=== PATIENT | male | born 1985 | race Caucasian/White ===

== ENCOUNTER 2019-12-17 02:05 | Emergency (ER) | payer SELFPAY ==
[~2019-12-17] VITALS: Ht 180.3 cm; Wt 83.9 kg
[2019-12-17 02:10] VITALS: BP 128/65
--- NOTE | 2019-12-17 02:10 | NUR ---
ED Nurse Note: Pt [place] into ED from nightclub by [facility] [address] for c/o alcohol intoxication. Pt was laying in front of the nightclub and was unable to walk with steady gait and security called 911. Pt reports having multiple alcoholic drinks tonight, but is being uncooperative with further questioning. Pt is aaox4, no cardiac or respiratory distress noted. Pt denies any pain or complaints. Pt able to stand and sit on hospital bed. Will continue to monitor.
--- NOTE | 2019-12-17 02:31 | Emergency Room Report ---
History of Present Illness General Chief Complaint: Alcohol Intoxication Source: Patient Present Illness HPI Patient is a 34-year-old male presents after increased confusion. Patient was reportedly in a nightclub and was noted to have altered mental status. He had recently been drinking alcohol. He denies any current complaints. Patient was brought in by EMS after being called. Patient denies any current pain. Allergies: Coded Allergies: No Known Allergies (Unverified , 12/17/19) Patient History Past Medical History: see triage record Reviewed Nursing Documentation: PMH: Agreed; PSxH: Agreed Nursing Documentation-PMH Past Medical History: No Stated History Review of Systems All Other Systems: limited - Limited by mental status Physical Exam Vital Signs Date Time Temp Pulse Resp B/P (MAP) Pulse Ox O2 Delivery O2 Flow Rate FiO2 12/17/19 02:06 98.8 98 17 128/65 (86) 99 Room Air Sp02 EP Interpretation: reviewed, normal General Appearance: normal inspection, well appearing, no apparent distress, alert Head: atraumatic Eyes: bilateral eye PERRL ENT: normal ENT inspection, hearing grossly normal, normal voice Neck: normal inspection, full range of motion, supple, no bony tend Respiratory: normal inspection, lungs clear, normal breath sounds, no respiratory distress, no retraction, no wheezing Cardiovascular #1: regular rate, rhythm, no edema Gastrointestinal: normal inspection, normal bowel sounds, non tender, soft, no guarding, no hernia Genitourinary: no CVA tenderness Musculoskeletal: normal inspection, back normal, normal range of motion Neurologic: alert, motor strength/tone normal, last ironer III-XII nml as tested, responsive, speech normal, normal inspection, other - Slurred speech Psychiatric: normal inspection, judgement/insight normal, mood/affect normal Skin: no rash Medical Decision Making Diagnostic Impression: Primary Impression: Acute alcoholic intoxication ER Course Patient presented for altered mental status. Differential diagnosis include was not limited to alcohol intoxication, drug overdose, hypoglycemia among others. Patient has a benign exam and does not appear to require any imaging or laboratory testing at this time. Patient appears to be intoxicated with alcohol. Patient will be observed in the emergency department until sober and ambulatory. Patient agreed to have gradually improving mental status. Patient will be discharged when sober. He is to follow-up with his primary care physician for recheck. This medical record is generated with [employer] physical therapy manager software. There may be some physical therapy manager discrepancies related to use of this software Last Vital Signs Date Time Temp Pulse Resp B/P (MAP) Pulse Ox O2 Delivery O2 Flow Rate FiO2 12/17/19 02:06 98.8 98 17 128/65 (86) 99 Room Air Status: improved Disposition: HOME, SELF-CARE Condition: Stable Be Euceda MD Dec 17, 2019 02:31
--- NOTE | 2019-12-17 04:30 | NUR ---
ED Nurse Note: Pt sleeping at this time, no acute distress noted. Will continue to monitor.
--- NOTE | 2019-12-17 07:10 | NUR ---
HAND-OFF: Report given to CASPER Campos and endorsed plan to DC upon pt waking up.
--- NOTE | 2019-12-17 07:11 | NUR ---
ED Nurse Note: Received patient in bed, patient appears to be asleep, snoring.
--- NOTE | 2019-12-17 08:05 | NUR ---
ED Nurse Note: patient is alert now. alert awake x4 ambulatory steady gait, breathing unlabored and even. speakin gin full sentences. patient reports he remembers that he was drunk "booze" at [employer] and understands that he came into hospital due to alcohol. patient refused to take vital signs. patient reports "I'm fine. I will leave now."
[2019-12-17 08:10] VITALS: BP 128/65
--- NOTE | 2019-12-17 08:11 | NUR ---
ER DISCHARGE NOTE: Patient is cleared to be discharged per ERMD DR MICHAEL, pt is aox4, on room air, with stable vital signs. pt was given dc and prescription instructions, pt was able to verbalize understanding, pt id band removed without complications. pt is able to ambulate with steady gait. pt took all belongings.
== END 2019-12-17 08:15 | disposition home or self-care (01) ==
LOC: EDBD 02:05 → EMR 02:39
DX: F10.129 Alcohol abuse with intoxication, unspecified (principal)
CPT/HCPCS: 99282